=== PATIENT | female | born 1940 | race Caucasian/White ===

== ENCOUNTER 2020-01-30 09:01 | Inpatient (IN) ==
[2020-01-30 09:56] LABS: Basophils % 0.3 % (0.0-0.8); Hematocrit 24.7 VOL% (35.7-47.0); Hemoglobin 7.3 GM/DL (12.0-16.0); Immature Granulocytes % 0.4 %; Immature Granulocytes Absolute 0.03 #; Lymphocytes # 0.4 10*3/uL (1.4-4.0); Lymphocytes % 6.2 % (21.3-54.2); Mean Corpuscular HGB Conc 29.6 GM/DL (32-36); Mean Corpuscular Volume 91.5 FL (87-102); Mean Platelet Volume 10.7 FL (9.6-12.0); NRBC # 0.09 10*3/uL; Neutrophils % 87.1 % (38.7-73.9); Platelet Count 435 T/CUMM (130-400); Red Cell Distribution Width 14.9 % (9.3-17.3); White Blood Count 7.1 T/CUMM (4-12)
[2020-01-30 10:17] LABS: Albumin 3.7 G/DL (3.4-5.0); Bilirubin,Total 1.3 MG/DL (0.2-1.0); Calcium 9.2 MG/DL (8.5-10.1); Osmolality,Calculated 282.7 MOS/KG (273-304); Total Protein 7.4 G/DL (6.4-8.3)
[2020-01-30] MEDS ORDERED: ALBUTEROL 2.5 MG/3 ML NEB RESP TX STA (11:00)
[2020-01-30 11:45] LABS: Folate 9.3 NG/ML (5.4-24.0)
[2020-01-30 11:48] LABS: % Iron Saturation 4.5 % (18-50); Ferritin 23.4 ng/ml (8-252)
[2020-01-30] MEDS ORDERED: ACETAMINOPHEN 325 MG TABLET PO PRN (13:17)
[2020-01-30] MEDS ORDERED: SODIUM CHLORIDE 0.9% 1,000 ML IV SCH (13:17)
[2020-01-30] MEDS ORDERED: ONDANSETRON 4 MG/2 ML VIAL IV PRN (13:17)
[2020-01-30] MEDS ORDERED: SODIUM CHLORIDE 0.9% 1,000 ML IV PRN (13:17)
[2020-01-30] MEDS ORDERED: FUROSEMIDE 40 MG/4 ML VIAL IV ONE ×2 (14:27→19:30)
[2020-01-30 15:01] LABS: Hepatitis B Core IgM Quant 0.19 Index; Hepatitis B Surface Ag Quant 0.21 Index; Hepatitis B Surface Ag Result Negative (Negative); Hepatitis C Virus Ab Quant 0.06 Index; Hepatitis C Virus Ab Result Negative (Negative)
[2020-01-30 15:13] LABS: CKMB % 3.1 %
[2020-01-30 15:24] LABS: Troponin I 0.109 NG/ML (0.00-0.045)
[2020-01-30] MEDS: FERROUS SULFATE 325 MG TABLET PO SCH ×2 (17:55→22:17)
[2020-01-30] MEDS ORDERED: ALBUTEROL/IPRATROPIUM 3 ML NEB RESP TX PRN (20:02)
[2020-01-30] MEDS: ALBUTEROL/IPRATROPIUM 3 ML NEB RESP TX SCH (20:12)
[2020-01-30] MEDS: DULoxetine 30 MG CAPSULE PO SCH (22:17)
[2020-01-30] MEDS: DOCUSATE SODIUM 100 MG CAPSULE PO SCH (23:27)
[2020-01-31] MEDS: ALBUTEROL/IPRATROPIUM 3 ML NEB RESP TX SCH ×6 (00:01→20:21)
[2020-01-31 06:30] LABS: Basophils % 0.2 % (0.0-0.8); Hematocrit 30.8 VOL% (35.7-47.0); Hemoglobin 9.7 GM/DL (12.0-16.0); Immature Granulocytes % 0.6 %; Immature Granulocytes Absolute 0.05 #; Lymphocytes # 0.4 10*3/uL (1.4-4.0); Lymphocytes % 4.9 % (21.3-54.2); Mean Corpuscular HGB Conc 31.5 GM/DL (32-36); Mean Platelet Volume 10.6 FL (9.6-12.0); Monocytes % 8.6 % (1.7-12.7); NRBC # 0.18 10*3/uL; Neutrophils % 85.7 % (38.7-73.9); Platelet Count 374 T/CUMM (130-400); Red Cell Distribution Width 15.6 % (9.3-17.3)
[2020-01-31 06:51] LABS: Albumin 3.3 G/DL (3.4-5.0); Bilirubin,Direct 0.23 MG/DL (0.0-0.20); Bilirubin,Indirect 1.2 MG/DL (0.0-1.0); Bilirubin,Total 1.4 MG/DL (0.2-1.0); Total Protein 6.8 G/DL (6.4-8.3)
[2020-01-31 06:52] LABS: CKMB % 3.2 %
[2020-01-31 06:55] LABS: Troponin I 0.173 NG/ML (0.00-0.045)
[2020-01-31 07:50] LABS: Hypochromasia 1+; Lymphocytes 11 % (20-55); Nucleated Red Blood Cells 2 (0-5); Segmented Neutrophils 84 % (50-85); Total Cells Counted 100
[2020-01-31 07:51] LABS: Microcytosis 1+; Ovalocytes Slight; Platelet Estimate Normal
[2020-01-31] MEDS ORDERED: SODIUM CHLORIDE 0.9% 1,000 ML IV SCH (08:00)
[2020-01-31] MEDS: FERROUS SULFATE 325 MG TABLET PO SCH ×3 (08:58→20:57)
[2020-01-31] MEDS: VITAMIN E 400 UNIT CAPSULE PO SCH (08:58)
[2020-01-31] MEDS: ASCORBIC ACID 500 MG TABLET PO SCH (08:58)
[2020-01-31] MEDS: PANTOPRAZOLE 40 MG TABLET PO SCH (08:58)
[2020-01-31] MEDS: DULoxetine 30 MG CAPSULE PO SCH ×2 (08:58→20:57)
[2020-01-31] MEDS: LOSARTAN 50 MG TABLET PO SCH (08:58)
[2020-01-31] MEDS: POTASSIUM GLUCONATE 500 MG TABLET PO SCH (08:59)
[2020-01-31] MEDS: FUROSEMIDE 40 MG/4 ML VIAL IV SCH ×2 (08:59→16:44)
[2020-01-31] MEDS: CALCIUM (CARBONATE)/VITAMIN D 600 MG-400 UNIT TABLET PO SCH (08:59)
[2020-01-31] MEDS: SELENIUM 200 MCG TABLET PO SCH (09:15)
[2020-01-31] MEDS: DOCUSATE SODIUM 100 MG CAPSULE PO SCH ×2 (09:15→20:57)
[2020-02-01] MEDS: ALBUTEROL/IPRATROPIUM 3 ML NEB RESP TX SCH ×6 (02:11→23:00)
[2020-02-01 05:50] LABS: Calcium 8.2 MG/DL (8.5-10.1); Osmolality,Calculated 282.5 MOS/KG (273-304)
[2020-02-01] MEDS: POTASSIUM CHLORIDE RIDER 10 MEQ in PREMIX 1 EACH IV PRN ×2 (07:49→08:50)
[2020-02-01 08:28] LABS: Basophils # 0.1 10*3/uL (0.0-0.2); Basophils % 0.7 % (0.0-0.8); Eosinophils % 0.6 % (0.00-10.9); Hematocrit 28.5 VOL% (35.7-47.0); Immature Granulocytes % 0.4 %; Immature Granulocytes Absolute 0.03 #; Lymphocytes # 1.1 10*3/uL (1.4-4.0); Lymphocytes % 16.1 % (21.3-54.2); Mean Corpuscular HGB Conc 31.6 GM/DL (32-36); Mean Corpuscular Volume 86.1 FL (87-102); Mean Platelet Volume 10.7 FL (9.6-12.0); Monocytes % 8.9 % (1.7-12.7); NRBC # 0.13 10*3/uL; Neutrophils % 73.3 % (38.7-73.9); Platelet Count 335 T/CUMM (130-400); Red Blood Count 3.31 MC/CUMM (3.8-5.5); Red Cell Distribution Width 15.6 % (9.3-17.3); White Blood Count 6.9 T/CUMM (4-12)
[2020-02-01 08:48] LABS: Albumin 2.9 G/DL (3.4-5.0); Bilirubin,Direct 0.22 MG/DL (0.0-0.20); Bilirubin,Indirect 0.5 MG/DL (0.0-1.0); Bilirubin,Total 0.7 MG/DL (0.2-1.0); Total Protein 5.4 G/DL (6.4-8.3)
[2020-02-01] MEDS: DULoxetine 30 MG CAPSULE PO SCH ×2 (09:22→21:37)
[2020-02-01] MEDS: POTASSIUM GLUCONATE 500 MG TABLET PO SCH (09:22)
[2020-02-01] MEDS: ASCORBIC ACID 500 MG TABLET PO SCH (09:23)
[2020-02-01] MEDS: FERROUS SULFATE 325 MG TABLET PO SCH ×3 (09:23→21:37)
[2020-02-01] MEDS: VITAMIN E 400 UNIT CAPSULE PO SCH (09:23)
[2020-02-01] MEDS: CALCIUM (CARBONATE)/VITAMIN D 600 MG-400 UNIT TABLET PO SCH (09:23)
[2020-02-01] MEDS: LOSARTAN 50 MG TABLET PO SCH (09:23)
[2020-02-01] MEDS: DOCUSATE SODIUM 100 MG CAPSULE PO SCH ×2 (09:23→21:37)
[2020-02-01] MEDS: PANTOPRAZOLE 40 MG TABLET PO SCH (09:23)
[2020-02-01] MEDS: SELENIUM 200 MCG TABLET PO SCH (09:23)
[2020-02-01] MEDS: FUROSEMIDE 40 MG/4 ML VIAL IV SCH ×2 (09:24→16:50)
[2020-02-01] MEDS: POTASSIUM CHLORIDE 20 MEQ TABLET PO PRN ×5 (10:01→23:40)
[2020-02-02] MEDS: POTASSIUM CHLORIDE 20 MEQ TABLET PO PRN (01:39)
[2020-02-02] MEDS: ALBUTEROL/IPRATROPIUM 3 ML NEB RESP TX SCH ×5 (03:00→19:00)
[2020-02-02] MEDS: ASCORBIC ACID 500 MG TABLET PO SCH (09:09)
[2020-02-02] MEDS: SELENIUM 200 MCG TABLET PO SCH (09:09)
[2020-02-02] MEDS: CALCIUM (CARBONATE)/VITAMIN D 600 MG-400 UNIT TABLET PO SCH (09:09)
[2020-02-02] MEDS: PANTOPRAZOLE 40 MG TABLET PO SCH (09:09)
[2020-02-02] MEDS: LOSARTAN 50 MG TABLET PO SCH (09:09)
[2020-02-02] MEDS: VITAMIN E 400 UNIT CAPSULE PO SCH (09:09)
[2020-02-02] MEDS: POTASSIUM GLUCONATE 500 MG TABLET PO SCH (09:09)
[2020-02-02] MEDS: DULoxetine 30 MG CAPSULE PO SCH ×2 (09:09→21:22)
[2020-02-02] MEDS: DOCUSATE SODIUM 100 MG CAPSULE PO SCH ×2 (09:09→21:22)
[2020-02-02] MEDS: FERROUS SULFATE 325 MG TABLET PO SCH ×3 (09:10→21:22)
[2020-02-02] MEDS: FUROSEMIDE 40 MG/4 ML VIAL IV SCH ×2 (09:10→16:42)
[2020-02-03 06:25] LABS: Basophils # 0.1 10*3/uL (0.0-0.2); Basophils % 0.9 % (0.0-0.8); Eosinophils # 0.4 10*3/uL (0.0-0.87); Eosinophils % 5.8 % (0.00-10.9); Hematocrit 29.5 VOL% (35.7-47.0); Hemoglobin 9.4 GM/DL (12.0-16.0); Immature Granulocytes % 0.3 %; Immature Granulocytes Absolute 0.02 #; Lymphocytes # 1.2 10*3/uL (1.4-4.0); Mean Corpuscular HGB Conc 31.9 GM/DL (32-36); Mean Corpuscular Volume 88.6 FL (87-102); Mean Platelet Volume 10.6 FL (9.6-12.0); Monocytes % 10.7 % (1.7-12.7); NRBC # 0.02 10*3/uL; Neutrophils % 64.3 % (38.7-73.9); Platelet Count 328 T/CUMM (130-400); Red Blood Count 3.33 MC/CUMM (3.8-5.5); Red Cell Distribution Width 16.6 % (9.3-17.3); White Blood Count 6.5 T/CUMM (4-12)
[2020-02-03] MEDS: ALBUTEROL/IPRATROPIUM 3 ML NEB RESP TX SCH ×4 (06:56→19:16)
[2020-02-03] MEDS: DOCUSATE SODIUM 100 MG CAPSULE PO SCH ×2 (09:05→21:16)
[2020-02-03] MEDS: ASCORBIC ACID 500 MG TABLET PO SCH (09:05)
[2020-02-03] MEDS: POTASSIUM GLUCONATE 500 MG TABLET PO SCH (09:06)
[2020-02-03] MEDS: LOSARTAN 50 MG TABLET PO SCH (09:06)
[2020-02-03] MEDS: VITAMIN E 400 UNIT CAPSULE PO SCH (09:06)
[2020-02-03] MEDS: DULoxetine 30 MG CAPSULE PO SCH ×2 (09:06→21:16)
[2020-02-03] MEDS: SELENIUM 200 MCG TABLET PO SCH (09:06)
[2020-02-03] MEDS: CALCIUM (CARBONATE)/VITAMIN D 600 MG-400 UNIT TABLET PO SCH (09:06)
[2020-02-03] MEDS: PANTOPRAZOLE 40 MG TABLET PO SCH (09:06)
[2020-02-03] MEDS: FERROUS SULFATE 325 MG TABLET PO SCH ×3 (09:06→21:16)
[2020-02-03] MEDS: FUROSEMIDE 40 MG/4 ML VIAL IV SCH ×2 (09:07→15:08)
[2020-02-04] MEDS: ALBUTEROL/IPRATROPIUM 3 ML NEB RESP TX SCH ×5 (07:10→23:00)
[2020-02-04] MEDS: POTASSIUM GLUCONATE 500 MG TABLET PO SCH (08:36)
[2020-02-04] MEDS: CALCIUM (CARBONATE)/VITAMIN D 600 MG-400 UNIT TABLET PO SCH (08:36)
[2020-02-04] MEDS: FUROSEMIDE 40 MG/4 ML VIAL IV SCH ×2 (08:36→15:36)
[2020-02-04] MEDS: DOCUSATE SODIUM 100 MG CAPSULE PO SCH ×2 (08:36→20:58)
[2020-02-04] MEDS: PANTOPRAZOLE 40 MG TABLET PO SCH (08:36)
[2020-02-04] MEDS: LOSARTAN 50 MG TABLET PO SCH (08:36)
[2020-02-04] MEDS: DULoxetine 30 MG CAPSULE PO SCH ×2 (08:36→20:58)
[2020-02-04] MEDS: SELENIUM 200 MCG TABLET PO SCH (08:36)
[2020-02-04] MEDS: FERROUS SULFATE 325 MG TABLET PO SCH ×3 (08:36→20:58)
[2020-02-04] MEDS: ASCORBIC ACID 500 MG TABLET PO SCH (08:36)
[2020-02-04] MEDS: VITAMIN E 400 UNIT CAPSULE PO SCH (08:36)
[2020-02-04 10:28] LABS: Bilirubin,Direct 0.14 MG/DL (0.0-0.20); Bilirubin,Indirect 0.4 MG/DL (0.0-1.0); Bilirubin,Total 0.5 MG/DL (0.2-1.0); Total Protein 6.5 G/DL (6.4-8.3)
[2020-02-04] MEDS: LACTATED RINGERS 1,000 ML IV SCH (12:37)
[2020-02-04] MEDS ORDERED: propofoL 200 MG/20 ML VIAL IV ONE (13:40)
[2020-02-04] MEDS ORDERED: LIDOCAINE 2% 5 ML VIAL ONE (13:40)
[2020-02-04] MEDS ORDERED: ETOMIDATE 20 MG/10 ML VIAL IV ONE (13:40)
[2020-02-05] MEDS: ALBUTEROL/IPRATROPIUM 3 ML NEB RESP TX SCH ×6 (03:00→19:12)
[2020-02-05 06:29] LABS: Basophils # 0.1 10*3/uL (0.0-0.2); Basophils % 0.9 % (0.0-0.8); Eosinophils # 0.6 10*3/uL (0.0-0.87); Eosinophils % 9.2 % (0.00-10.9); Hematocrit 36.4 VOL% (35.7-47.0); Immature Granulocytes % 0.3 %; Immature Granulocytes Absolute 0.02 #; Lymphocytes # 0.8 10*3/uL (1.4-4.0); Lymphocytes % 11.8 % (21.3-54.2); Mean Corpuscular Volume 90.3 FL (87-102); Mean Platelet Volume 10.1 FL (9.6-12.0); Monocytes % 12.3 % (1.7-12.7); Neutrophils % 65.5 % (38.7-73.9); Platelet Count 345 T/CUMM (130-400); Red Cell Distribution Width 18.9 % (9.3-17.3); White Blood Count 6.9 T/CUMM (4-12)
[2020-02-05 06:43] LABS: Hemoglobin 11.3 GM/DL (12.0-16.0); Red Blood Count 4.03 MC/CUMM (3.8-5.5)
[2020-02-05 06:50] LABS: Calcium 8.9 MG/DL (8.5-10.1); Osmolality,Calculated 274.8 MOS/KG (273-304)
[2020-02-05] MEDS: POTASSIUM GLUCONATE 500 MG TABLET PO SCH (08:05)
[2020-02-05] MEDS: LOSARTAN 50 MG TABLET PO SCH (08:06)
[2020-02-05] MEDS: CALCIUM (CARBONATE)/VITAMIN D 600 MG-400 UNIT TABLET PO SCH (08:06)
[2020-02-05] MEDS: PANTOPRAZOLE 40 MG TABLET PO SCH (08:06)
[2020-02-05] MEDS: SELENIUM 200 MCG TABLET PO SCH (08:06)
[2020-02-05] MEDS: ASCORBIC ACID 500 MG TABLET PO SCH (08:06)
[2020-02-05] MEDS: DOCUSATE SODIUM 100 MG CAPSULE PO SCH ×2 (08:06→21:10)
[2020-02-05] MEDS: FERROUS SULFATE 325 MG TABLET PO SCH ×3 (08:06→21:10)
[2020-02-05] MEDS: DULoxetine 30 MG CAPSULE PO SCH ×2 (08:06→21:10)
[2020-02-05] MEDS: VITAMIN E 400 UNIT CAPSULE PO SCH (08:09)
[2020-02-05] MEDS: FUROSEMIDE 40 MG/4 ML VIAL IV SCH ×2 (08:13→15:53)
[2020-02-05] MEDS: LACTATED RINGERS 1,000 ML IV SCH (12:57)
[2020-02-06] MEDS: ALBUTEROL/IPRATROPIUM 3 ML NEB RESP TX SCH ×2 (00:36→07:30)
[2020-02-06 05:59] LABS: Basophils % 0.5 % (0.0-0.8); Eosinophils # 0.4 10*3/uL (0.0-0.87); Eosinophils % 5.3 % (0.00-10.9); Hematocrit 36.1 VOL% (35.7-47.0); Hemoglobin 11.3 GM/DL (12.0-16.0); Immature Granulocytes % 0.4 %; Immature Granulocytes Absolute 0.03 #; Lymphocytes % 12.8 % (21.3-54.2); Mean Corpuscular HGB Conc 31.3 GM/DL (32-36); Mean Corpuscular Volume 89.4 FL (87-102); Mean Platelet Volume 11.4 FL (9.6-12.0); Monocytes % 9.9 % (1.7-12.7); Neutrophils % 71.1 % (38.7-73.9); Red Blood Count 4.04 MC/CUMM (3.8-5.5); Red Cell Distribution Width 18.9 % (9.3-17.3); White Blood Count 7.8 T/CUMM (4-12)
[2020-02-06 06:13] LABS: Platelet Count 209 T/CUMM (130-400)
[2020-02-06 06:18] LABS: Calcium 8.4 MG/DL (8.5-10.1); Osmolality,Calculated 275.8 MOS/KG (273-304)
[2020-02-06 06:46] LABS: Hypochromasia Slight; Platelet Estimate Adequate
[2020-02-06 07:46] VITALS: BP 134/63
[2020-02-06] MEDS: ASCORBIC ACID 500 MG TABLET PO SCH (08:38)
[2020-02-06] MEDS: DULoxetine 30 MG CAPSULE PO SCH (08:38)
[2020-02-06] MEDS: SELENIUM 200 MCG TABLET PO SCH (08:38)
[2020-02-06] MEDS: CALCIUM (CARBONATE)/VITAMIN D 600 MG-400 UNIT TABLET PO SCH (08:38)
[2020-02-06] MEDS: FERROUS SULFATE 325 MG TABLET PO SCH (08:39)
[2020-02-06] MEDS: LOSARTAN 50 MG TABLET PO SCH (08:39)
[2020-02-06] MEDS: DOCUSATE SODIUM 100 MG CAPSULE PO SCH (08:39)
[2020-02-06] MEDS: POTASSIUM GLUCONATE 500 MG TABLET PO SCH (08:39)
[2020-02-06] MEDS: VITAMIN E 400 UNIT CAPSULE PO SCH (08:39)
[2020-02-06] MEDS: FUROSEMIDE 40 MG/4 ML VIAL IV SCH (08:41)
[2020-02-06] MEDS: PANTOPRAZOLE 40 MG TABLET PO SCH (08:42)
== END 2020-02-06 11:11 | disposition home health service (06) | DRG 811 ==
LOC: N.ED 09:01 → N.EDINP 09:01 → N.TELES 13:15
PROVIDERS: ADMIT Family Medicine; ATTEND Family Medicine

== ENCOUNTER 2020-09-04 04:00 | Inpatient (IN) ==
[2020-09-04] MEDS ORDERED: DIPH/TET/ACEL PERT BOOSTER VACCINE 0.5 ML VIAL IM ONE (04:48)
[2020-09-04] MEDS ORDERED: ONDANSETRON 4 MG/2 ML VIAL IV STA (04:48)
[2020-09-04 05:02] LABS: Basophils # 0.1 10*3/uL (0.0-0.2); Basophils % 0.4 % (0.0-0.8); Eosinophils % 0.1 % (0.00-10.9); Hematocrit 45.8 VOL% (35.7-47.0); Hemoglobin 15.1 GM/DL (12.0-16.0); Immature Granulocytes % 0.3 %; Immature Granulocytes Absolute 0.04 #; Lymphocytes # 1.2 10*3/uL (1.4-4.0); Lymphocytes % 10.3 % (21.3-54.2); Mean Corpuscular Volume 91.1 FL (87-102); Mean Platelet Volume 10.7 FL (9.6-12.0); Monocytes % 9.2 % (1.7-12.7); Neutrophils % 79.7 % (38.7-73.9); Platelet Count 309 T/CUMM (130-400); Red Blood Count 5.03 MC/CUMM (3.8-5.5); Red Cell Distribution Width 13.4 % (9.3-17.3); White Blood Count 11.9 T/CUMM (4-12)
[2020-09-04 05:06] LABS: PT Patient Result 11.4 SECS (10.5-12.0)
[2020-09-04 05:21] LABS: Albumin 3.8 G/DL (3.4-5.0); Bilirubin,Total 0.7 MG/DL (0.20-1.00); Calcium 9.7 MG/DL (8.5-10.1); Osmolality,Calculated 280.2 MOS/KG (273-304); Total Protein 8.7 G/DL (6.4-8.2)
[2020-09-04] MEDS ORDERED: POTASSIUM CHLORIDE RIDER 20 MEQ/100 ML PREMIX IV STA (05:25)
[2020-09-04] MEDS ORDERED: SODIUM CHLORIDE 0.9% 1,000 ML IV STA (05:41)
[2020-09-04] MEDS ORDERED: POTASSIUM CHLORIDE RIDER 10 MEQ/100 ML PREMIX IV ONE (05:55)
[2020-09-04 06:30] LABS: Bacteria,Urine Occasional /HPF (Few); Bilirubin,Urine Negative (Negative); Blood, Urine Negative (Negative); Glucose,Urine (UA) Negative (Negative); Hyaline Casts,Urine 46 /LPF (0-3); Ketones,Urine Negative (Negative); Mucus,Urine Occasional /LPF (Occasional); Nitrite,Urine Negative (Negative); Protein,Urine Negative; RBC,Urine 4 /HPF (0-4); Squamous Epithelial Cell,Urine Occasional /HPF (0-10); Urine Appearance CLEAR (Clear); Urine Color Yellow (Yellow); Urine Specific Gravity 1.012 (1.001-1.035); Urine Urobilinogen < 2.0 EU/DL (0.2-1.0)
[2020-09-04 06:41] LABS: Barbiturates Screen,Urine Negative (Negative); Benzodiazepines Screen,Urine Negative (Negative); Cannabinoid Screen,Urine Negative (Negative); Opiate Screen,Urine Negative (Negative); Phencyclidine Screen,Urine Negative (Negative)
[2020-09-04] MEDS ORDERED: MORPHINE 2 MG/1 ML SYRINGE IV PRN (07:43)
[2020-09-04] MEDS ORDERED: ACETAMINOPHEN 325 MG TABLET PO PRN (07:43)
[2020-09-04] MEDS ORDERED: ONDANSETRON 4 MG/2 ML VIAL IV PRN (07:43)
[2020-09-04] MEDS ORDERED: PANTOPRAZOLE 40 MG TABLET PO SCH (09:00)
[2020-09-04] MEDS: POTASSIUM CHLORIDE 10 MEQ TABLET PO SCH ×2 (09:24→20:58)
[2020-09-04] MEDS: DOCUSATE SODIUM 100 MG CAPSULE PO SCH ×2 (09:24→20:58)
[2020-09-04] MEDS: ENOXAPARIN 30 MG/0.3 ML SYRINGE SUBCUT SCH (09:24)
[2020-09-04] MEDS: DULoxetine 30 MG CAPSULE PO SCH ×2 (09:24→20:58)
[2020-09-04] MEDS: POTASSIUM BICARB EFFERVESCENT 20 MEQ TAB.EFF PO SCH (09:25)
[2020-09-04] MEDS: ASPIRIN EC 81 MG TABLET PO SCH (09:25)
[2020-09-04] MEDS: FERROUS SULFATE 325 MG TABLET PO SCH (09:25)
[2020-09-04] MEDS: FLUTICASONE 50 MCG NASAL SPRAY 16 GM BOTTLE BOTH NARES SCH ×2 (09:25→21:01)
[2020-09-04] MEDS: ROSUVASTATIN 10 MG TABLET PO SCH (09:25)
[2020-09-04] MEDS: PANTOPRAZOLE 40 MG TABLET PO SCH ×2 (09:25→09:27)
[2020-09-04] MEDS: GLUCOSAMINE 500 MG TABLET PO SCH ×2 (09:25→20:58)
[2020-09-04] MEDS: CALCIUM (CARBONATE)/VITAMIN D 600 MG-400 UNIT TABLET PO SCH (09:25)
[2020-09-04] MEDS: SELENIUM 200 MCG TABLET PO SCH (09:26)
[2020-09-04] MEDS: SODIUM CHLORIDE 0.9% 1,000 ML IV SCH ×3 (13:54→22:35)
[2020-09-05 04:21] LABS: Basophils # 0.1 10*3/uL (0.0-0.2); Eosinophils # 0.1 10*3/uL (0.0-0.87); Eosinophils % 1.7 % (0.00-10.9); Hematocrit 34.7 VOL% (35.7-47.0); Hemoglobin 11.5 GM/DL (12.0-16.0); Immature Granulocytes % 0.4 %; Immature Granulocytes Absolute 0.02 #; Lymphocytes # 1.2 10*3/uL (1.4-4.0); Lymphocytes % 24.7 % (21.3-54.2); Mean Corpuscular HGB Conc 33.1 GM/DL (32-36); Mean Corpuscular Volume 91.3 FL (87-102); Mean Platelet Volume 10.8 FL (9.6-12.0); Monocytes % 9.6 % (1.7-12.7); Neutrophils % 62.6 % (38.7-73.9); Platelet Count 203 T/CUMM (130-400); Red Cell Distribution Width 13.5 % (9.3-17.3); White Blood Count 4.8 T/CUMM (4-12)
[2020-09-05 05:02] LABS: Albumin 2.7 G/DL (3.4-5.0); Bilirubin,Total 0.7 MG/DL (0.20-1.00); Calcium 7.8 MG/DL (8.5-10.1); Osmolality,Calculated 280.7 MOS/KG (273-304); Risk Ratio 2.11; Total Protein 5.9 G/DL (6.4-8.2); VLDL Cholesterol 16.8 MG/DL
[2020-09-05 05:06] LABS: Potassium 2.5 MMOL/L (3.5-5.1)
[2020-09-05] MEDS ORDERED: POTASSIUM CHLORIDE RIDER 10 MEQ/100 ML PREMIX IV PRN (05:29)
[2020-09-05] MEDS: POTASSIUM CHLORIDE 20 MEQ TABLET PO PRN ×5 (06:17→18:15)
[2020-09-05] MEDS: CALCIUM (CARBONATE)/VITAMIN D 600 MG-400 UNIT TABLET PO SCH (09:01)
[2020-09-05] MEDS: DULoxetine 30 MG CAPSULE PO SCH ×2 (09:01→20:38)
[2020-09-05] MEDS: PANTOPRAZOLE 40 MG TABLET PO SCH ×2 (09:01→09:58)
[2020-09-05] MEDS: POTASSIUM CHLORIDE 10 MEQ TABLET PO SCH ×2 (09:01→20:38)
[2020-09-05] MEDS: ASCORBIC ACID 500 MG TABLET PO SCH (09:01)
[2020-09-05] MEDS: ASPIRIN EC 81 MG TABLET PO SCH (09:01)
[2020-09-05] MEDS: FERROUS SULFATE 325 MG TABLET PO SCH (09:01)
[2020-09-05] MEDS: DOCUSATE SODIUM 100 MG CAPSULE PO SCH ×2 (09:02→20:38)
[2020-09-05] MEDS: ROSUVASTATIN 10 MG TABLET PO SCH (09:02)
[2020-09-05] MEDS: carvediloL 3.125 MG TABLET PO SCH (09:02)
[2020-09-05] MEDS: POTASSIUM BICARB EFFERVESCENT 20 MEQ TAB.EFF PO SCH (09:02)
[2020-09-05] MEDS: ENOXAPARIN 30 MG/0.3 ML SYRINGE SUBCUT SCH (09:02)
[2020-09-05] MEDS: SELENIUM 200 MCG TABLET PO SCH (09:03)
[2020-09-05] MEDS: FLUTICASONE 50 MCG NASAL SPRAY 16 GM BOTTLE BOTH NARES SCH ×2 (09:08→20:43)
[2020-09-05] MEDS: FUROSEMIDE 40 MG TABLET PO SCH ×2 (09:08→20:38)
[2020-09-05] MEDS: GLUCOSAMINE 500 MG TABLET PO SCH ×2 (09:08→20:38)
[2020-09-06] MEDS: carvediloL 3.125 MG TABLET PO SCH ×3 (00:41→21:29)
[2020-09-06] MEDS: POTASSIUM CHLORIDE 20 MEQ TABLET PO PRN ×6 (08:57→17:51)
[2020-09-06] MEDS: ASCORBIC ACID 500 MG TABLET PO SCH (08:57)
[2020-09-06] MEDS: CALCIUM (CARBONATE)/VITAMIN D 600 MG-400 UNIT TABLET PO SCH (08:57)
[2020-09-06] MEDS: ASPIRIN EC 81 MG TABLET PO SCH (08:57)
[2020-09-06] MEDS: DOCUSATE SODIUM 100 MG CAPSULE PO SCH ×2 (08:57→21:28)
[2020-09-06] MEDS: GLUCOSAMINE 500 MG TABLET PO SCH ×2 (08:57→21:28)
[2020-09-06] MEDS: ENOXAPARIN 30 MG/0.3 ML SYRINGE SUBCUT SCH (08:57)
[2020-09-06] MEDS: SELENIUM 200 MCG TABLET PO SCH (08:57)
[2020-09-06] MEDS: PANTOPRAZOLE 40 MG TABLET PO SCH ×2 (08:58→11:38)
[2020-09-06] MEDS: ROSUVASTATIN 10 MG TABLET PO SCH (08:58)
[2020-09-06] MEDS: POTASSIUM BICARB EFFERVESCENT 20 MEQ TAB.EFF PO SCH (08:58)
[2020-09-06] MEDS: POTASSIUM CHLORIDE 10 MEQ TABLET PO SCH ×2 (08:58→21:29)
[2020-09-06] MEDS: FERROUS SULFATE 325 MG TABLET PO SCH (08:58)
[2020-09-06] MEDS: FUROSEMIDE 40 MG TABLET PO SCH (08:58)
[2020-09-06] MEDS: DULoxetine 30 MG CAPSULE PO SCH ×2 (08:58→21:29)
[2020-09-06] MEDS: FLUTICASONE 50 MCG NASAL SPRAY 16 GM BOTTLE BOTH NARES SCH ×2 (09:02→21:29)
[2020-09-06 15:56] LABS: Calcium 8.6 MG/DL (8.5-10.1); Potassium 3.5 MMOL/L (3.5-5.1)
[2020-09-06] MEDS: FUROSEMIDE 20 MG TABLET PO SCH (21:28)
[2020-09-07 04:52] LABS: Basophils % 0.8 % (0.0-0.8); Eosinophils # 0.3 10*3/uL (0.0-0.87); Eosinophils % 6.3 % (0.00-10.9); Hematocrit 35.5 VOL% (35.7-47.0); Hemoglobin 11.7 GM/DL (12.0-16.0); Immature Granulocytes % 0.4 %; Immature Granulocytes Absolute 0.02 #; Lymphocytes # 1.3 10*3/uL (1.4-4.0); Lymphocytes % 24.2 % (21.3-54.2); Mean Platelet Volume 11.2 FL (9.6-12.0); Neutrophils % 57.3 % (38.7-73.9); Platelet Count 208 T/CUMM (130-400); Red Blood Count 3.86 MC/CUMM (3.8-5.5); Red Cell Distribution Width 13.5 % (9.3-17.3); White Blood Count 5.3 T/CUMM (4-12)
[2020-09-07 05:16] LABS: Calcium 8.8 MG/DL (8.5-10.1); Osmolality,Calculated 278.7 MOS/KG (273-304); Potassium 3.9 MMOL/L (3.5-5.1)
[2020-09-07] MEDS: SELENIUM 200 MCG TABLET PO SCH (08:43)
[2020-09-07] MEDS: DULoxetine 30 MG CAPSULE PO SCH ×2 (08:43→21:00)
[2020-09-07] MEDS: POTASSIUM BICARB EFFERVESCENT 20 MEQ TAB.EFF PO SCH (08:43)
[2020-09-07] MEDS: FERROUS SULFATE 325 MG TABLET PO SCH (08:43)
[2020-09-07] MEDS: DOCUSATE SODIUM 100 MG CAPSULE PO SCH ×2 (08:43→21:01)
[2020-09-07] MEDS: ASPIRIN EC 81 MG TABLET PO SCH (08:43)
[2020-09-07] MEDS: CALCIUM (CARBONATE)/VITAMIN D 600 MG-400 UNIT TABLET PO SCH (08:43)
[2020-09-07] MEDS: PANTOPRAZOLE 40 MG TABLET PO SCH ×2 (08:43→09:58)
[2020-09-07] MEDS: FUROSEMIDE 20 MG TABLET PO SCH ×2 (08:43→21:00)
[2020-09-07] MEDS: ROSUVASTATIN 10 MG TABLET PO SCH (08:43)
[2020-09-07] MEDS: ASCORBIC ACID 500 MG TABLET PO SCH (08:43)
[2020-09-07] MEDS: GLUCOSAMINE 500 MG TABLET PO SCH ×2 (08:44→21:00)
[2020-09-07] MEDS: POTASSIUM CHLORIDE 10 MEQ TABLET PO SCH ×2 (08:44→21:00)
[2020-09-07] MEDS: carvediloL 3.125 MG TABLET PO SCH ×2 (08:44→21:02)
[2020-09-07] MEDS: ENOXAPARIN 30 MG/0.3 ML SYRINGE SUBCUT SCH (08:44)
[2020-09-07] MEDS: FLUTICASONE 50 MCG NASAL SPRAY 16 GM BOTTLE BOTH NARES SCH ×2 (08:44→21:02)
[2020-09-08] MEDS ORDERED: ENOXAPARIN 40 MG/0.4 ML SYRINGE SUBCUT SCH (08:00)
[2020-09-08] MEDS: carvediloL 3.125 MG TABLET PO SCH (08:49)
[2020-09-08] MEDS: DULoxetine 30 MG CAPSULE PO SCH (08:51)
[2020-09-08] MEDS: CALCIUM (CARBONATE)/VITAMIN D 600 MG-400 UNIT TABLET PO SCH (08:51)
[2020-09-08] MEDS: PANTOPRAZOLE 40 MG TABLET PO SCH ×2 (08:51→09:29)
[2020-09-08] MEDS: FUROSEMIDE 20 MG TABLET PO SCH (08:52)
[2020-09-08] MEDS: ROSUVASTATIN 10 MG TABLET PO SCH (08:52)
[2020-09-08] MEDS: ASPIRIN EC 81 MG TABLET PO SCH (08:52)
[2020-09-08] MEDS: POTASSIUM BICARB EFFERVESCENT 20 MEQ TAB.EFF PO SCH (08:52)
[2020-09-08] MEDS: DOCUSATE SODIUM 100 MG CAPSULE PO SCH (08:52)
[2020-09-08] MEDS: POTASSIUM CHLORIDE 10 MEQ TABLET PO SCH (08:52)
[2020-09-08] MEDS: SELENIUM 200 MCG TABLET PO SCH (08:52)
[2020-09-08] MEDS: FERROUS SULFATE 325 MG TABLET PO SCH (08:52)
[2020-09-08] MEDS: ASCORBIC ACID 500 MG TABLET PO SCH (08:52)
[2020-09-08] MEDS: FLUTICASONE 50 MCG NASAL SPRAY 16 GM BOTTLE BOTH NARES SCH (08:59)
[2020-09-08] MEDS: GLUCOSAMINE 500 MG TABLET PO SCH (09:41)
[2020-09-08 16:22] VITALS: BP 135/61
== END 2020-09-08 17:51 | disposition home or self-care (01) | DRG 641 ==
LOC: EDUNIT# → EDSEX → EDBD → N.ED 04:00 → N.EDINP 05:43 → N.TELEN 06:50
PROVIDERS: ADMIT Family Medicine; ATTEND Family Medicine